=== PATIENT | female | born 1990 ===

== ENCOUNTER 2018-01-01 02:48 | Inpatient (IN) | payer OTHER ==
--- NOTE | 2018-01-01 03:39 | HP ---
Past Medical History - Admission Chief Complaint: Labor pain History of Present Illness: 27 yo @ 39 weeks gestation, EDC 01/06/18, presents to L&D c/o labor pain. She denies any vaginal bleeding nor rupture of membrane but she was fully dilated upon examination. History Source: Patient Limitations to Obtaining History: No Limitations - Past Medical History ...: 3 ...Para: 1 ...LMP: 04/01/17 ...EDC by Dates: 01/06/18 - Past Surgical History Past Surgical History: Yes: None Hx Myomectomy: No Hx Transabdominal Cerclage: No - Smoking History Have you smoked in the past 12 months: No - Alcohol/Substance Use Hx Alcohol Use: No History of Substance Use: reports: None - Social History Usual Living Arrangement: Yes: With Parent History of Recent Travel: No Review of Systems - Review of Systems Constitutional: reports: No Symptoms Eyes: reports: No Symptoms HENT: reports: No Symptoms Neck: reports: No Symptoms Cardiovascular: reports: No Symptoms Respiratory: reports: No Symptoms Gastrointestinal: reports: No Symptoms Genitourinary: reports: Pain Breasts: reports: No Symptoms Reported Integumentary: reports: No Symptoms Neurological: reports: No Symptoms Endocrine: reports: No Symptoms Hematology/Lymphatic: reports: No Symptoms Psychiatric: reports: No Symptoms Pain Intensity: 9 Physical Exam - Maternity Constitutional: Yes: Well Nourished Eyes: Yes: Conjunctiva Clear HENT: Yes: Atraumatic Neck: Yes: Supple Cardiovascular: Yes: Regular Rate and Rhythm Lungs: Clear to auscultation Breast(s): Yes: WNL - Abdominal Exam/OB Number of Fetuses: Single Presentation: Vertex Intensity: Strong - Vaginal Exam/OB Dilatation (cm): 10 Presentation: Vertex/Position Station: +1 - Physical Exam Musculoskeletal: Yes: WNL Extremities: Yes: WNL ...Motor Strength: WNL Psychiatric: Yes: Alert, Oriented Problem List - Problems (1) Pain during labor Code(s): O99.89 - OTH DISEASES AND CONDITIONS COMPL PREG/CHLDBRTH; R52 - PAIN, UNSPECIFIED (2) Status post normal vaginal delivery Code(s): JTS2027 - Assessment/Plan Active labor Admit to L&D Anticipate
--- NOTE | 2018-01-01 03:42 | PN ---
Delivery - Delivery Vaginal Delivery: Spontaneous Episiotomy/Laceration: 2nd degree EBL (cc): 300 Remarks - Remarks Remarks: Normal spontaneous vaginal delivery of a live infant boy over second degree laceration. Nose / Oropharynx suctioned @ perineum. Nuchal cord x1 clamped and cut. Placenta expelled spontaneously intact Laceration repaired with 2.0 Chromic.
[2018-01-01] MEDS ORDERED: BENZOCAINE 28 GM HEMORRHOIDAL OINTMENT TP PRN (03:43)
[2018-01-01] MEDS ORDERED: BENZOCAINE 20% 57 GM BOTTLE TP PRN (03:43)
[2018-01-01] MEDS ORDERED: WITCH HAZEL 50% (TUCKS) 40 PAD/JAR PAD TP PRN (03:43)
[2018-01-01] MEDS ORDERED: METHYLERGONOVINE MALEATE 0.2 MG/1 ML AMP IM PRN (03:43)
[2018-01-01] MEDS ORDERED: BISACODYL 10 MG SUPP.RECT RC PRN (03:43)
[2018-01-01] MEDS ORDERED: ELECTROLYTE-148 SOLN 1,000 ML IV SCH (03:45)
[2018-01-01] MEDS ORDERED: OXYTOCIN 20 UNITS in 0.9% NS 20 UNIT/1,000 ML INFUS.BAG IV SCH (03:45)
[2018-01-01] MEDS: IBUPROFEN 600 MG TABLET (FP) PO PRN ×4 (03:55→21:22)
[2018-01-01] MEDS: ACETAMINOPHEN 325 MG TABLET (FP) PO PRN ×4 (03:55→21:24)
[2018-01-01] MEDS ORDERED: OXYTOCIN 30 UNITS in 0.9% NS 30 UNIT/500 ML INFUS.BAG IVPB ONE (03:59)
[2018-01-01 04:13] LABS: BASO % 0.6 % (0-2.0); EOS % 0.7 % (0-4.5); HEMATOCRIT 30.7 % (32.4-45.2); HEMOGLOBIN 9.8 GM/dL (10.7-15.3); LYMPH % 30.2 % (8-40); MCH 22.2 pg (25.7-33.7); MCHC 31.8 g/dl (32.0-36.0); MEAN CELL VOLUME 69.8 fl (80-96); MEAN PLT VOLUME 9.5 fl (7.5-11.1); MONO % 4.1 % (3.8-10.2); NEUT % 64.4 % (42.8-82.8); PLATELET COUNT 129 K/MM3 (134-434); RDW 18.9 % (11.6-15.6)
[2018-01-01 04:17] VITALS: BMI 24.8
[2018-01-01 04:24] LABS: COCAINE, UR NEGATIVE ng/ml (CUTOFF=300); METHADONE, UR NEGATIVE ng/ml (CUTOFF=300); OPIATES, URI NEGATIVE ng/ml (CUTOFF=300); PHENCYCLIDINE,URINE NEGATIVE ng/ml (CUTOFF=25); URINE AMPHETAMINES NEGATIVE ng/ml (CUTOFF=500); URINE BARBITURATES NEGATIVE ng/ml (CUTOFF=200); URINE BENZODIAZEPINES NEGATIVE ng/ml (CUTOFF=200)
[2018-01-01 04:27] LABS: INR 1.02 (0.82-1.09); PROTHROMBIN TIME (PATIENT) 11.5 SEC (9.7-13.0)
[2018-01-01 04:29] LABS: ACTIVATED PTT 25.9 SECONDS (26.9-34.4)
[2018-01-01 04:35] LABS: ANION GAP 12 (8-16); BLOOD UREA NITROGEN 17 mg/dL (7-18); CALCIUM 7.9 mg/dL (8.5-10.1); CHLORIDE 108 mmol/L (98-107); CO2 19 mmol/L (21-32); CREATININE 0.6 mg/dL (0.55-1.02); GLUCOSE,RANDOM 112 mg/dL (74-106); POTASSIUM 3.8 mmol/L (3.5-5.1); SODIUM 139 mmol/L (136-145)
[2018-01-01] MEDS: FERROUS SO4 325 MG TABLET (FP) PO SCH ×3 (08:22→16:55)
[2018-01-01] MEDS: PRENATAL VITAMINS W/ FOLIC ACID TABLET (FP) PO SCH (10:09)
[2018-01-02 07:51] LABS: BASO % 0.5 % (0-2.0); EOS % 1.1 % (0-4.5); HEMATOCRIT 30.3 % (32.4-45.2); HEMOGLOBIN 9.4 GM/dL (10.7-15.3); LYMPH % 32.3 % (8-40); MCH 21.9 pg (25.7-33.7); MCHC 31.1 g/dl (32.0-36.0); MEAN CELL VOLUME 70.3 fl (80-96); MEAN PLT VOLUME 10.2 fl (7.5-11.1); MONO % 3.5 % (3.8-10.2); NEUT % 62.6 % (42.8-82.8); PLATELET COUNT 144 K/MM3 (134-434); RBC 4.31 M/mm3 (3.60-5.2); RDW 18.8 % (11.6-15.6); WHITE BLOOD COUNT 11.8 K/mm3 (4.0-10.0)
[2018-01-02] MEDS: FERROUS SO4 325 MG TABLET (FP) PO SCH ×3 (08:00→17:06)
[2018-01-02] MEDS: ACETAMINOPHEN 325 MG TABLET (FP) PO PRN ×2 (09:09→20:56)
[2018-01-02] MEDS: IBUPROFEN 600 MG TABLET (FP) PO PRN ×2 (09:09→20:53)
[2018-01-02] MEDS: PRENATAL VITAMINS W/ FOLIC ACID TABLET (FP) PO SCH (09:09)
--- NOTE | 2018-01-02 19:40 | PN ---
Post Progress Note - Subjective Subjective: 27 yo Para 2 status post vaginal delivery, seen and evaluated. Doing well. Post Day: 1 Type of Delivery: Vital Signs: Vital Signs Temperature 98.6 F 01/02/18 10:00 Pulse Rate 81 01/02/18 10:00 Respiratory Rate 18 01/02/18 10:00 Blood Pressure 119/74 01/02/18 10:00 O2 Sat by Pulse Oximetry (%) Uterus: Yes: Fundus Firm Abdomen/GI: Yes: Abdomen soft, Tolerating PO Lochia: Yes: Rubra Lochia, amount: Moderate Extremities: Yes: Calves non-tender Perineum: Yes: Laceration (Healing) Activity: Ambulating - Labs Labs: CBC WBC 11.8 K/mm3 (4.0-10.0) H D 01/02/18 07:00 RBC 4.31 M/mm3 (3.60-5.2) 01/02/18 07:00 Hgb 9.4 GM/dL (10.7-15.3) L 01/02/18 07:00 Hct 30.3 % (32.4-45.2) L 01/02/18 07:00 MCV 70.3 fl (80-96) L 01/02/18 07:00 MCH 21.9 pg (25.7-33.7) L 01/02/18 07:00 MCHC 31.1 g/dl (32.0-36.0) L 01/02/18 07:00 RDW 18.8 % (11.6-15.6) H 01/02/18 07:00 Plt Count 144 K/MM3 (134-434) 01/02/18 07:00 MPV 10.2 fl (7.5-11.1) 01/02/18 07:00 Neutrophils % 62.6 % (42.8-82.8) 01/02/18 07:00 Lymphocytes % 32.3 % (8-40) 01/02/18 07:00 Monocytes % 3.5 % (3.8-10.2) L 01/02/18 07:00 Eosinophils % 1.1 % (0-4.5) 01/02/18 07:00 Basophils % 0.5 % (0-2.0) 01/02/18 07:00 Problem List - Problems (1) Pain during labor Code(s): O99.89 - OTH DISEASES AND CONDITIONS COMPL PREG/CHLDBRTH; R52 - PAIN, UNSPECIFIED (2) Status post normal vaginal delivery Code(s): MNK5489 - Assessment/Plan Status post vaginal delivery Stable Continue routine care
[2018-01-02] MEDS ORDERED: SENNOSIDES/DOCUSATE COMBO (SENNA PLUS) TABLET (UD) PO PRN (22:00)
--- NOTE | 2018-01-03 01:55 | DS ---
Physical Exam-DESIGN ENGINEERING SPECIALIST Vital Signs: Vital Signs Temperature 98.5 F 01/02/18 22:00 Pulse Rate 79 01/02/18 22:00 Respiratory Rate 18 01/02/18 22:00 Blood Pressure 122/74 01/02/18 22:00 O2 Sat by Pulse Oximetry (%) Constitutional: Yes: Well Nourished Eyes: Yes: Conjunctiva Clear HENT: Yes: Atraumatic Neck: Yes: Supple Cardiovascular: Yes: Regular Rate and Rhythm Respiratory: Yes: Regular Gastrointestinal: Yes: Normal Bowel Sounds External Genitalia: Yes: Normal Vaginal Exam: Yes: Normal Cervix: Yes: Normal Uterus: Yes: Firm ....Post : Yes: Uterus firm, Moderate lochia serosa Breast(s): Yes: WNL Musculoskeletal: Yes: WNL Extremities: Yes: WNL Neurological: Yes: Alert, Oriented ...Motor Strength: WNL Psychiatric: Yes: Alert, Oriented Labs: CBC, BMP 01/02/18 07:00 01/01/18 03:45 Delivery - Delivery Vaginal Delivery: Spontaneous Type of Anesthesia: Local Episiotomy/Laceration: 2nd degree EBL (cc): 300 Delivery, Single - Stages of Labor Date 1st Stage Initiatied: 01/01/18 Time 1st Stage Initiated: 00:00 Date 2nd Stage Initiated: 01/01/18 Time 2nd Stage Initiated: 02:48 Date of Delivery: 01/01/18 Time of Delivery: 03:14 Time Placenta Delivered: 03:20 - 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 Gender: Male Weight: 7 lb 2 oz Total Hours ROM (Hrs/Mins): 50M - 1 Minute Total Score: 9 5 Minutes Total Score: 9 - [place] Feeding Plan Initial Plan: Elected not to breastfeed exclusively throughout hospitalization Discharge Summary Reason For Visit: LABOR ADMIT Current Active Problems Pain during labor (Acute) Status post normal vaginal delivery (Acute) Procedures: Principal: Normal spontaneous vaginal delivery Hospital Course: Routine care Condition: Good - Instructions Diet, Activity, Other Instructions: Regular diet No douching, no sexual intercourse x 6 weeks F/U in clinic in 6 weeks Disposition: HOME - Home Medications Comprehensive Discharge Medication List: Ambulatory Orders Ferrous Sulfate [Feosol] 325 mg PO BID 01/01/18 Tablet 1 tablet PO DAILY 01/01/18
[2018-01-03] MEDS: ACETAMINOPHEN 325 MG TABLET (FP) PO PRN ×2 (08:02→15:51)
[2018-01-03] MEDS: IBUPROFEN 600 MG TABLET (FP) PO PRN ×2 (08:03→15:51)
[2018-01-03] MEDS: FERROUS SO4 325 MG TABLET (FP) PO SCH ×3 (08:03→17:11)
[2018-01-03] MEDS: PRENATAL VITAMINS W/ FOLIC ACID TABLET (FP) PO SCH (10:06)
[2018-01-03 10:18] VITALS: BP 107/67; PULSE 80; TEMP 98.6
== END 2018-01-03 17:16 | disposition home or self-care (01) | DRG 560 ==
LOC: JLDR 02:48 → J3W 05:45
PROVIDERS: ADMIT Obstetrics & Gynecology; ATTEND Obstetrics & Gynecology
PROC: 0KQM0ZZ Repair Perineum Muscle, Open Approach (ICD-10-PCS; principal; 2018-01-01)
PROC: 10E0XZZ Delivery of Products of Conception, External Approach (ICD-10-PCS; 2018-01-01)
DX: O70.1 Second degree perineal laceration during delivery (principal); Z3A.39 39 weeks gestation of pregnancy; Z37.0 Single live birth
CPT/HCPCS: 36415; 59409; 80048; 80307; 85025; 85610; 85730; 86593; 86850; 86900; 86901